=== PATIENT | male | born 1995 | race Two or more races ===

== ENCOUNTER 2017-04-10 11:05 | Emergency (ER) | payer OTHER ==
[2017-04-10] MEDS ORDERED: Ketorolac INJ* 60 MG/2 ML VIAL IM ONE (12:08)
[2017-04-10] MEDS ORDERED: Cyclobenzaprine TAB* 10 MG PO ONE (12:08)
--- NOTE | 2017-04-10 13:10 | ED ---
Back Pain - HPI Summary HPI Summary: Patient presents with low back pain after 4 days of studying. He denies known trauma, incontinence of urine or stool, N/T or difficulty ambulating. He had tried Icy/Hot without relief. No prior injury. - History of Current Complaint Chief Complaint: EDBackInjuryPain Stated Complaint: LOWER BACK PAIN Time Seen by Provider: 04/10/17 11:15 Hx Obtained From: Patient Onset/Duration: Gradual Onset Onset/Duration: Started Days Ago Timing: Constant Back Pain Location: Is Discrete @ - lumbar region Severity Initially: Moderate Severity Currently: Severe Pain Intensity: 7 Character: Aching, Stiffness Aggravating Symptom(s): Movement, Walking Alleviating Symptom(s): Rest Associated Signs And Symptoms: Positive: Pain with Weight Bearing - Allergies/Home Medications Allergies/Adverse Reactions: Allergies Allergy/AdvReac Type Severity Reaction Status Date / Time No Known Allergies Allergy Verified 04/10/17 11:32 PMH/Surg Hx/FS Hx/Imm Hx Previously Healthy: Yes Infectious Disease History: No Infectious Disease History: Denies: Traveled Outside the [place] in Last 30 Days - Family History Known Family History: Positive: None - Social History Occupation: Student Lives: Alone Alcohol Use: Weekly Substance Use Type: Reports: None Smoking Status (MU): Never Smoked Tobacco Review of Systems Positive: Myalgia. Negative: Decreased ROM, Edema Negative: Bruising Negative: Weakness, Paresthesia, Numbness All Other Systems Reviewed And Are Negative: Yes Physical Exam Triage Information Reviewed: Yes Vital Signs On Initial Exam: Initial Vitals Temp Pulse Resp BP Pulse Ox 98.6 F 89 18 146/87 100 04/10/17 11:08 04/10/17 11:08 04/10/17 11:08 04/10/17 11:08 04/10/17 11:08 Vital Signs Reviewed: Yes Appearance: Positive: Well-Appearing, Pain Distress, Obese Skin: Positive: Warm, Skin Color Reflects Adequate Perfusion, Dry, Soft Head/Face: Positive: Normal Head/Face Inspection Eyes: Positive: EOMI, HARRIET, Conjunctiva Clear Neck: Positive: Supple, Nontender Respiratory/Lung Sounds: Positive: Breath Sounds Present Cardiovascular: Positive: RRR Abdomen Description: Positive: Nontender, Soft Musculoskeletal: Positive: Strength/ROM Intact - + bilateral SLR, Pain @ - TTP bilateral lumbar spine muscles Neurological: Positive: Sensory/Motor Intact, Alert, Oriented to Person Place, Time, NV Bundle Intact Distally Psychiatric: Positive: Affect/Mood Appropriate AVPU Assessment: Alert Diagnostics - Vital Signs Vital Signs Temp Pulse Resp BP Pulse Ox 04/10/17 11:30 98.6 F 89 18 146/87 100 04/10/17 11:08 98.6 F 89 18 146/87 100 - Laboratory Lab Statement: Any lab studies that have been ordered have been reviewed, and results considered in the medical decision making process. Re-Evaluation - Re-Evaluation First Eval Re-Evaluation Time: 13:00 Change: Improved - pain has decreased with treatment Back Pain Course/Dx - Diagnoses Differential Diagnosis/HQI/PQRI: Positive: Cauda Equina Syndrome, Compressive Cord Syndrome, Herniated Disc, Strain, Sprain Provider Diagnoses: Low back pain Discharge - Discharge Plan Condition: Stable Disposition: HOME Prescriptions: Cyclobenzaprine TAB* [Flexeril 10 MG TAB*] 10 mg PO TID PRN #15 tab PRN Reason: Pain Patient Education Materials: Acute Low Back Pain (ED) Referrals: Non Staff,Doctor [Primary Care Provider] - [facility] [Outside] Additional Instructions: Please begin using ibuprofen 600mg three times daily with meals tomorrow at lunch. Use the muscle relaxers as needed for pain as well. Apply heat several times daily and rest your back. Follow-up with [facility] as needed. Return to the emergency department if symptoms worsen.
[2017-04-10 14:13] VITALS: BP 132/68
== END 2017-04-10 14:11 | disposition home or self-care (01) ==
LOC: ED 11:05
DX: M54.5 Low back pain (principal)
CPT/HCPCS: 96372; 99282; A9270-GY; J1885